=== PATIENT | female | born 1975 | race Caucasian/White ===

== ENCOUNTER → 2018-10-06 | Outpatient (CLI) | payer SELFPAY ==
[~2018-10-06] MED LIST: NITR-65 PO
--- NOTE | 2018-10-06 17:59 | Diagnostic Imaging Report ---
INDICATION: Fall on ice. FINDINGS: No fracture or dislocation. IMPRESSION: No acute-appearing abnormality. Dictated by: Dictated on workstation # [id number]
== END ==
LOC: RAD FS 17:19
PROVIDERS: ATTEND Physician Assistant
DX: S49.91XA Unspecified injury of right shoulder and upper arm, initial encounter (principal); W00.9XXA Unspecified fall due to ice and snow, initial encounter
CPT/HCPCS: 73030

== ENCOUNTER 2019-10-10 21:56 | Emergency (ER) | payer SELFPAY ==
[~2019-10-10] VITALS: Ht 165.1 cm; Wt 115.7 kg
[2019-10-10] MEDS ORDERED: PANTOPRAZOLE 40 MG (PROTONIX) VIAL IV STA (22:17)
[2019-10-10] MEDS ORDERED: NITROGLYCERIN 2% OINT 1 GM UNIT DOSE PACKET TOP STA (22:17)
[2019-10-10] MEDS ORDERED: ASPIRIN 81 MG CHEW (CHILDREN'S ASA) PO ONE (22:30)
[2019-10-10 22:31] LABS: BASOPHILS # (AUTO) 0.1 10^3/uL (0.0-0.1); BASOPHILS % (AUTO) 1 % (0-10); EOSINOPHILS # (AUTO) 0.1 10^3/uL (0.0-0.3); EOSINOPHILS % (AUTO) 1 % (0-10); HEMATOCRIT 44 % (35-52); HEMOGLOBIN 14.1 G/DL (11.5-16.0); LYMPHOCYTES # (AUTO) 2.5 X 10^3 (1.0-4.0); LYMPHOCYTES % (AUTO) 25 % (12-44); MEAN CORPUSCULAR HEMOGLOBIN 27 PG (25-34); MEAN CORPUSCULAR HGB CONC 32 G/DL (32-36); MEAN CORPUSCULAR VOLUME 84 FL (80-99); MEAN PLATELET VOLUME 9.9 FL (7.4-10.4); MONOCYTES # (AUTO) 0.7 X 10^3 (0.0-1.0); MONOCYTES % (AUTO) 7 % (0-12); NEUTROPHILS # (AUTO) 6.5 X 10^3 (1.8-7.8); NEUTROPHILS % (AUTO) 66 % (42-75); PLATELET COUNT 313 10^3/uL (130-400); RED CELL DISTRIBUTION WIDTH 13.8 % (10.0-14.5); WHITE BLOOD COUNT 9.8 10^3/uL (4.3-11.0)
[2019-10-10 22:41] LABS: INR 0.9 (0.8-1.4); PROTHROMBIN TIME PATIENT 12.6 SEC (12.2-14.7)
[2019-10-10 22:43] LABS: BUN/CREATININE RATIO 16; CARBON DIOXIDE 25 MMOL/L (21-32); CHLORIDE 101 MMOL/L (98-107); CREATININE SERUM 0.79 MG/DL (0.60-1.30); GFR ESTIMATED > 60; GLUCOSE 107 MG/DL (70-105); POTASSIUM 4.4 MMOL/L (3.6-5.0); SODIUM 141 MMOL/L (135-145)
[2019-10-10 22:44] LABS: ALANINE AMINOTRANSFERASE 14 U/L (0-55); ALBUMIN 4.6 GM/DL (3.2-4.5); ALKALINE PHOSPHATASE 74 U/L (40-136); BILIRUBIN,TOTAL 0.7 MG/DL (0.1-1.0); CALCIUM 10.3 MG/DL (8.5-10.1); LIPASE 21 U/L (8-78); TOTAL PROTEIN 7.8 GM/DL (6.4-8.2)
--- NOTE | 2019-10-10 22:46 | ED Chest Pain ---
General Chief Complaint: Chest Pain Stated Complaint: CHEST PAINS Nursing Triage Note: PT AMBULATE TO ROOM FS03 WITH C/O CHEST PAIN STARTING AT 1730. PT DENIES HX OF CARDIAC PROBLEMS AND STATES FAMILY HX OF. Nursing Sepsis Screen: No Definite Risk Source: patient History of Present Illness Date Seen by Provider: Oct 10, 2019 Time Seen by Provider: 21:59 Initial Comments 44-year-old female presenting with complaints of left-sided chest pain. She states that the pain started around 5:30. She initially had a sensation of warm water going across her chest. She had a flushed sensation and redness in her face. She had pain in her left chest under her breast going through to her back. This persisted since 5:30. It feels worse when she lays back. She also has recently had increased indigestion. She had tried Tums at home without improvement. She denies any nausea or vomiting. She was having no change in her bowel movements. She has no pain with urination. She has improvement with deep breaths. She does have a family history of heart problems and heart attacks. She has gained weight and is weighing the most she ever has currently. Allergies and Home Medications Allergies Coded Allergies: No Known Drug Allergies (Unverified , 10/10/19) Home Medications Pantoprazole Sodium 40 Mg Tablet.dr, 40 MG PO DAILY Prescribed by: RANDELL PEREZ on 10/11/19 0032 Patient Home Medication List Home Medication List Reviewed: Yes Review of Systems Review of Systems Constitutional: No chills, No diaphoresis, No dizziness, No fever EENTM: No Double Vision, No Eye Pain, No Mouth Pain, No Nose Congestion, No Throat Pain Respiratory: Denies Cough, Denies Shortness of Air, Denies Stridor, Denies Wheezing Cardiovascular: See HPI; Denies Edema Gastrointestinal: Denies Abdominal Pain, Denies Nausea Genitourinary: Denies Flank Pain, Denies Pain Musculoskeletal: no symptoms reported Skin: No rash Psychiatric/Neurological: Denies Headache, Denies Numbness Endocrine: No Symptoms Reported Hematologic/Lymphatic: No Symptoms Reported Past Oemkawh-Wfruog-Zyuczz Hx Past Med/Social Hx: Reviewed Nursing Past Med/Soc Hx Patient Social History Alcohol Use: Denies Use Recreational Drug Use: No Smoking Status: Former Smoker 2nd Hand Smoke Exposure: No Recent Foreign Travel: No Contact w/Someone Who Travel: No Recent Infectious Disease Expo: No Recent Hopitalizations: No Physical Abuse: No Sexual Abuse: No Mistreated: No Fear: No Seasonal Allergies Seasonal Allergies: No Past Medical History Surgeries: No Respiratory: No Cardiac: No Neurological: No Genitourinary: No Gastrointestinal: No Musculoskeletal: No Endocrine: No HEENT: No Cancer: No Psychosocial: No Integumentary: No Blood Disorders: No Physical Exam Vital Signs Vital Signs - First Documented 10/10/19 22:04 Temp 35.8 Pulse 88 Resp 19 B/P (MAP) 162/101 (121) O2 Delivery Room Air Capillary Refill : Less Than 3 Seconds Height, Weight, BMI Height: '" Weight: lbs. oz. kg; 42.00 BMI Method: General Appearance: WD/WN, Mild Distress, Obese HEENT: PERRL/EOMI, Normal ENT Inspection, Pharynx Normal Neck: Full Range of Motion, Normal Inspection, Non Tender, Supple; No Carotid Bruit Respiratory: Chest Non Tender, Lungs Clear, Normal Breath Sounds, No Accessory Muscle Use, No Respiratory Distress Cardiovascular: Regular Rate, Rhythm, Normal Peripheral Pulses Gastrointestinal: Normal Bowel Sounds, No Pulsatile Mass, Non Tender, Soft Extremity: Normal Capillary Refill, Normal Inspection, Normal Range of Motion, Non Tender, No Calf Tenderness, No Pedal Edema Neurologic/Psychiatric: Alert, Oriented x3, No Motor/Sensory Deficits, Normal Mood/Affect, 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 Skin: Normal Color, Warm/Dry Progress/Results/Core Measures Results/Orders Lab Results Laboratory Tests Test 10/10/19 22:05 Range/Units White Blood Count 9.8 4.3-11.0 10^3/uL Red Blood Count 5.18 4.35-5.85 10^6/uL Hemoglobin 14.1 11.5-16.0 G/DL Hematocrit 44 35-52 % Mean Corpuscular Volume 84 80-99 FL Mean Corpuscular Hemoglobin 27 25-34 PG Mean Corpuscular Hemoglobin Concent 32 32-36 G/DL Red Cell Distribution Width 13.8 10.0-14.5 % Platelet Count 313 130-400 10^3/uL Mean Platelet Volume 9.9 7.4-10.4 FL Neutrophils (%) (Auto) 66 42-75 % Lymphocytes (%) (Auto) 25 12-44 % Monocytes (%) (Auto) 7 0-12 % Eosinophils (%) (Auto) 1 0-10 % Basophils (%) (Auto) 1 0-10 % Neutrophils # (Auto) 6.5 1.8-7.8 X 10^3 Lymphocytes # (Auto) 2.5 1.0-4.0 X 10^3 Monocytes # (Auto) 0.7 0.0-1.0 X 10^3 Eosinophils # (Auto) 0.1 0.0-0.3 10^3/uL Basophils # (Auto) 0.1 0.0-0.1 10^3/uL Prothrombin Time 12.6 12.2-14.7 SEC INR Comment 0.9 0.8-1.4 Activated Partial Thromboplast Time 29 24-35 SEC Sodium Level 141 135-145 MMOL/L Potassium Level 4.4 3.6-5.0 MMOL/L Chloride Level 101 98-107 MMOL/L Carbon Dioxide Level 25 21-32 MMOL/L Anion Gap 15 H 5-14 MMOL/L Blood Urea Nitrogen 13 7-18 MG/DL Creatinine 0.79 0.60-1.30 MG/DL Estimat Glomerular Filtration Rate > 60 BUN/Creatinine Ratio 16 Glucose Level 107 H 70-105 MG/DL Calcium Level 10.3 H 8.5-10.1 MG/DL Corrected Calcium 8.5-10.1 MG/DL Magnesium Level 2.0 1.6-2.4 MG/DL Total Bilirubin 0.7 0.1-1.0 MG/DL Aspartate Amino Transf (AST/SGOT) 14 5-34 U/L Alanine Aminotransferase (ALT/SGPT) 14 0-55 U/L Alkaline Phosphatase 74 40-136 U/L Troponin I < 0.30 <0.30 NG/ML Pro-B-Type Natriuretic Peptide 21.0 <75.0 PG/ML Total Protein 7.8 6.4-8.2 GM/DL Albumin 4.6 H 3.2-4.5 GM/DL Lipase 21 8-78 U/L My Orders Orders - RANDELL PEREZ MD Cbc With Automated Diff (10/10/19 22:17) Magnesium (10/10/19 22:17) Chest 1 View Ap/Pa Only (10/10/19 22:17) Ekg Tracing (10/10/19 22:17) Comprehensive Metabolic Panel (10/10/19 22:17) Protime With Inr (10/10/19 22:17) Partial Thromboplastin Time (10/10/19 22:17) O2 (10/10/19 22:17) Monitor-Rhythm Ecg Trace Only (10/10/19 22:17) Aspirin Chewable Tablet (Baby Aspirin Ch (10/10/19 22:30) Ed Iv/Invasive Line Start (10/10/19 22:17) Lipase (10/10/19 22:17) Troponin I Fs (10/10/19 22:17) Probnp Fs (10/10/19 22:17) Nitroglycerin Ointment (Nitrobid Ointme (10/10/19 22:17) Pantoprazole Injection (Protonix Injecti (10/10/19 22:17) Antacid Suspension (Mylanta Suspension (10/10/19 23:45) Medications Given in ED Current Medications Medications Dose Ordered Sig/Asuncion Route Start Time Stop Time Status Last Admin Dose Admin Al Hydrox/Mg Hydrox/Simethicone 30 ml ONCE ONCE PO 10/10/19 23:45 10/10/19 23:46 DC 10/10/19 23:53 30 ML Aspirin 324 mg ONCE ONCE PO 10/10/19 22:30 10/10/19 22:31 DC 10/10/19 22:30 324 MG Vital Signs/I&O 10/10/19 10/10/19 22:04 22:09 Temp 35.8 Pulse 88 Resp 19 B/P (MAP) 162/101 (121) O2 Delivery Room Air Room Air Blood Pressure Mean: 121 Progress Progress Note #1: Progress Note check labs, ECG, CXR. Give Protonix for possible GI source of pain. Try nitroglycerin for elevated blood pressure and pain. Give aspirin for possible cardiac source. The electrocardiogram does not show any acute ST elevation or acute MT. Progress Note #2: Progress Note On recheck her symptoms are improved with treatment. She has improved blood pressure as well. Her chest x-ray, EKG, labs are all within normal limits. She has no elevation of troponin. Her blood pressure continues to fluctuate but is improved with treatment. Will add on a dose of Maalox as patient refused GI cocktail. Her troponin was not elevated at all and she has had pain for over 5 hours on arrival. If this was an MT she should've had at least some sort of elevation of her troponin. Progress Note #3: Progress Note After Mylanta she reports pain maybe slightly improved. She has no pain going to her back. Will discharge her to follow up with Dr. Arita. Counseled that she may need an EGD to look for hiatal hernia or ulcer. She may also need risk stratification testing with cardiology. Reviewed follow-up precautions if her symptoms worsen. Will prescribe Protonix to help with acid and possible hiatal hernia symptoms. Initial ECG Impression Date: Oct 10, 2019 Initial ECG Impression Time: 22:11 Initial ECG Rate: 80 Initial ECG Rhythm: Normal Sinus Initial ECG Comparisson: No Previous ECG Available Comment Sinus rhythm with heart rate of 80 bpm. SD interval 148 ms. QT interval 359 ms and a QTc interval 415 ms. There is no acute ST elevation. There is no prior tracing available for comparison. Diagnostic Imaging Diagonstic Imaging: Xray Plain Films/CT/US/NM/MRI: chest Comments On my review of her 1 view chest x-ray she has no acute infiltrate or effusion. Departure Impression Primary Impression: Left-sided chest pain Additional Impressions: Elevated blood pressure reading Gastritis Qualified Codes: K29.70 - Gastritis, unspecified, without bleeding Disposition: HOME, SELF-CARE Condition: Stable Departure-Patient Inst. Decision time for Depature: 00:31 Referrals: SHAUN ARITA MD (PCP/Family) Primary Care Physician Patient Instructions: Chest Pain That Is Not Caused by the Heart (DC), Gastritis (DC), Hiatal Hernia (DC), High Blood Pressure (DC) Add. Discharge Instructions: Stay well hydrated and get plenty of rest Try following a bland diet Take the medicine for acid Check back with clinic for continued symptoms and further evaluation. Return or seek medical care for worsening symptoms All discharge instructions reviewed with patient and/or family. Voiced under standing. Scripts Pantoprazole Sodium (Pantoprazole Sodium) 40 Mg Tablet. 40 MG PO DAILY for gastritis/hiatal hernia for 30 Days, #30 TAB 0 Refills Prov: RANDELL PEREZ MD 10/11/19 RANDELL PEREZ MD Oct 10, 2019 22:46
[2019-10-10] MEDS ORDERED: ANTACID SUSP 30 ML UDC (MYLANTA) PO ONE (23:45)
[2019-10-11] MEDS ORDERED: PANT40TA3 PO (00:32)
[2019-10-11 00:38] VITALS: BP 146/90
--- NOTE | 2019-10-11 06:11 | Diagnostic Imaging Report ---
INDICATION: Chest pain COMPARISON: None. FINDINGS: Frontal view of the chest demonstrates clear lungs bilaterally. The heart size is normal. There is no pneumothorax. Osseous structures are normal. IMPRESSION: No acute findings. Normal chest. Dictated by: Dictated on workstation # [id number]
== END 2019-10-11 00:38 | disposition home or self-care (01) ==
LOC: MERGE 21:58 → ER FS 21:58
DX: R07.89 Other chest pain (principal); K29.70 Gastritis, unspecified, without bleeding; R03.0 Elevated blood-pressure reading, without diagnosis of hypertension; Z87.891 Personal history of nicotine dependence
CPT/HCPCS: 36415; 71045; 80053; 83690; 83735; 83880; 84484; 85025; 85610; 85730; 93005; 93041

== ENCOUNTER 2021-05-16 12:37 | Emergency (ER) | payer BC, OTHER ==
[~2021-05-16] VITALS: Ht 165.1 cm; Wt 113.4 kg
[~2021-05-16 12:37] MED LIST changes: +PANT40TA52 PO
[2021-05-16 12:40] VITALS: BP 148/90
--- NOTE | 2021-05-16 12:46 | ED General ---
General Chief Complaint: Dizziness/Syncope Stated Complaint: DIZZINESS History of Present Illness Date Seen by Provider: May 16, 2021 Time Seen by Provider: 12:43 Initial Comments 46-year-old female presents via EMS with complaint of sore throat, headache (onset today) and concern that she may have Covid. She was exposed last week by her mother. Denies shortness of air, denies cough. No significant PMHX. on no Rx medication Allergies and Home Medications Allergies Coded Allergies: Amoxicillin (Verified Allergy, Severe, HIVES, 09/29/12) Patient Home Medication List Home Medication List Reviewed: Yes Nitrofurantoin/Nitrofuran Mac (Macrobid) 100 Mg Capsule, 1 EACH PO BID Prescribed by: LIDIA LEON on 09/29/121912 Pantoprazole Sodium (Pantoprazole Sodium) 40 Mg Tablet.dr, 40 MG PO DAILY Prescribed by: RANDELL PEREZ on 10/11/19 003 Review of Systems Review of Systems Constitutional: No chills, No fever; malaise EENTM: nose congestion, throat pain; No ear discharge, No ear pain, No nose pain Respiratory: No cough, No short of breath Cardiovascular: No edema, No palpitations Gastrointestinal: No abdominal pain, No loss of appetite, No nausea, No vomiting Musculoskeletal: No back pain, No joint pain Skin: No change in color, No rash Psychiatric/Neurological: Headache; Denies Weakness Past Mduvweg-Ekjthz-Svayqg Hx Patient Social History Tobacco Use?: No Past Medical History Reproductive Disorders: No Sexually Transmitted Disease: No HIV/AIDS: No Adverse Reaction/Blood Tranf: No Physical Exam Vital Signs Vital Signs - First Documented 05/16/21 12:40 Temp 36.8 Pulse 73 Resp 17 B/P (MAP) 148/90 (109) O2 Delivery Room Air Capillary Refill : Height, Weight, BMI Height: '" Weight: lbs. oz. kg; BMI Method:Stated General Appearance: No Apparent Distress HEENT: PERRL/EOMI, TMs Normal, Normal ENT Inspection, Pharynx Normal Neck: Non Tender, Supple Respiratory: Chest Non Tender, Lungs Clear Cardiovascular: Regular Rate, Rhythm, No Edema Neurologic/Psychiatric: Alert, Oriented x3, No Motor/Sensory Deficits, Normal Mood/Affect Progress/Results/Core Measures Suspected Sepsis SIRS Temperature: Pulse: Respiratory Rate: Blood Pressure / Mean: Results/Orders My Orders Orders - NORM JARVIS DO Coronavirus Sars-Cov-2 So 2018 (05/16/21 12:46) Vital Signs/I&O 05/16/21 12:40 Temp 36.8 Pulse 73 Resp 17 B/P (MAP) 148/90 (109) O2 Delivery Room Air Capillary Refill : Departure Impression Primary Impression: Viral upper respiratory illness Disposition: HOME, SELF-CARE Condition: Stable Departure-Patient Inst. Decision time for Depature: 12:45 Referrals: SHAUN ARITA MD (PCP/Family) Primary Care Physician Add. Discharge Instructions: Call Dr Arita with any further questions related to your current illness. Return to the ER if significantly worse. Take the following vitamins daily - C 1000mg twice daily; D 5000iu daily and Zinc 100mg daily All discharge instructions reviewed with patient and/or family. Voiced understanding. NORM JARVIS DO May 16, 2021 12:46
[2021-05-16] MEDS ORDERED: KETOROLAC 60 MG/2 ML VIAL IM ONE (13:00)
== END 2021-05-16 13:08 | disposition home or self-care (01) ==
LOC: EDUNIT# 12:37 → ER FS 12:38
DX: J06.9 Acute upper respiratory infection, unspecified (principal); Z20.822 Contact with and (suspected) exposure to COVID-19
CPT/HCPCS: 87635; 99283

== ENCOUNTER 2021-06-03 17:48 | Emergency (ER) | payer BC ==
[~2021-06-03] VITALS: Ht 165 cm; Wt 104.3 kg
[2021-06-03] MEDS ORDERED: ADENOSINE 6 MG/2 ML (ADENOCARD) VIAL IV ONE ×3 (17:57→18:30)
[2021-06-03] MEDS ORDERED: MIDAZOLAM 2 MG/2 ML (VERSED) VIAL ONE (17:59)
[2021-06-03] MEDS ORDERED: NS IV 1000 ML 1,000 ML ONE (17:59)
--- NOTE | 2021-06-03 18:16 | ED Chest Pain ---
General Chief Complaint: Respiratory Problems Stated Complaint: SOB,DIZZY,HEART RACING,CHEST TIGHTNESS Source: patient Exam Limitations: no limitations History of Present Illness Date Seen by Provider: Jun 03, 2021 Time Seen by Provider: 17:51 Initial Comments 46-year-old female otherwise healthy with no significant past medical history coming in after she felt like her heart was racing and she was having chest discomfort. The racing was severe, constant, nothing seemed to make it better or worse. She has never had anything like this happen before. 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 Denies any fever, nausea, vomiting, diarrhea, weakness, numbness, or any other concerns. She does drink caffeine multiple times per day in the form of coffee. Denies any other stimulants. Does not drink alcohol. No history of thyroid disorder Allergies and Home Medications Allergies Coded Allergies: Amoxicillin (Verified Allergy, Severe, HIVES, 09/29/12) Patient Home Medication List Home Medication List Reviewed: Yes Nitrofurantoin/Nitrofuran Mac (Macrobid) 100 Mg Capsule, 1 EACH PO BID Prescribed by: LIDIA LEON on 09/29/121912 Pantoprazole Sodium (Pantoprazole Sodium) 40 Mg Tablet.dr, 40 MG PO DAILY Prescribed by: RANDELL PEREZ on 10/11/19 003 Review of Systems Review of Systems Constitutional: No chills, No fever EENTM: No Blurred Vision Respiratory: Denies Cough; Shortness of Air Cardiovascular: Chest Pain Gastrointestinal: Denies Abdominal Pain, Denies Constipated, Denies Diarrhea, Denies Nausea, Denies Vomiting Genitourinary: No Symptoms Reported Musculoskeletal: no symptoms reported Skin: no symptoms reported Psychiatric/Neurological: No Symptoms Reported Endocrine: No Symptoms Reported Hematologic/Lymphatic: No Symptoms Reported All Other Systems Reviewed Negative Unless Noted: Yes Past Oifiwds-Oifbip-Lbsapn Hx Patient Social History Tobacco Use?: No Substance use?: No Alcohol Use?: No Past Medical History Surgeries: No Reproductive Disorders: No Sexually Transmitted Disease: No HIV/AIDS: No Adverse Reaction/Blood Tranf: No Physical Exam Vital Signs Vital Signs - First Documented 06/03/21 17:55 Temp 36.7 Pulse 220 Resp 20 B/P (MAP) 168/85 (112) Pulse Ox 94 O2 Delivery Room Air Capillary Refill : Height, Weight, BMI Height: '" Weight: lbs. oz. kg; 41.00 BMI Method:Stated General Appearance: WD/WN, Anxious, Mild Distress HEENT: PERRL/EOMI, Normal ENT Inspection, Pharynx Normal Neck: Full Range of Motion, Normal Inspection, Non Tender, Supple Respiratory: Chest Non Tender, Lungs Clear, Normal Breath Sounds, No Accessory Muscle Use, No Respiratory Distress Cardiovascular: No Edema, No Murmur, Normal Peripheral Pulses, Tachycardia Gastrointestinal: Normal Bowel Sounds, Non Tender, Soft; No Distended, No Guarding Extremity: Normal Capillary Refill, Normal Inspection, Normal Range of Motion, Non Tender, No Calf Tenderness, No Pedal Edema Neurologic/Psychiatric: Alert, No Motor/Sensory Deficits, Normal Mood/Affect Skin: Normal Color, Warm/Dry Lymphatic: No Adenopathy Progress/Results/Core Measures Results/Orders My Orders Orders - SIMRAN LAMB MD Adenosine Injection (Adenocard Injection (06/03/21 17:57) Midazolam Injection (Versed Injection) (06/03/21 17:59) Ns Iv 1000 Ml (Sodium Chloride 0.9%) (06/03/21 17:59) Ekg Tracing (06/03/21 18:07) Diltiazem Injection (Cardizem Injection) (06/03/21 18:07) Ekg Tracing (06/03/21 18:10) Midazolam Injection (Versed Injection) (06/03/21 18:19) Adenosine Injection (Adenocard Injection (06/03/21 18:30) Adenosine Injection (Adenocard Injection (06/03/21 18:30) Medications Given in ED Current Medications Medications Dose Ordered Sig/Asuncion Route Start Time Stop Time Status Last Admin Dose Admin Adenosine 6 mg ONCE ONCE IV 06/03/21 18:30 06/03/21 18:31 DC 06/03/21 18:04 6 MG Adenosine 12 mg ONCE ONCE IV 06/03/21 18:30 06/03/21 18:31 DC 06/03/21 18:07 12 MG Vital Signs/I&O 06/03/21 06/03/21 17:55 19:00 Temp 36.7 Pulse 220 100 Resp 20 19 B/P (MAP) 168/85 (112) 162/91 Pulse Ox 94 95 O2 Delivery Room Air Room Air Progress Progress Note : Progress Note 46-year-old female with above history coming in because she feels like her heart is racing and she has some chest discomfort that started at the same time. Heart rate was 230 roughly on arrival and regular with a narrow complex consistent with supraventricular tachycardia. This is never happened before. Blood pressure was actually hypertensive and she was stable with a normal mental status. Tried modified Valsalva x2 which was ineffective. IV was placed and she was given half milligram of Versed followed by 6 mg of adenosine which was not effective. She then converted with 12 mg of adenosine to sinus rhythm. Liter bolus of IV fluids followed by 10 mg of IV diltiazem given. Given this is never happened before, I will just recommend following up with her primary care doctor. I discussed that she can try Valsalva twice at home the next time this occurs and if she still feels that is happening she needs to call an ambulance or come immediately to the ER. Will defer cardiology referral given this is her first time this is occurred. She was monitored in the ED for some time and when she continued to be in sinus rhythm she was discharged home in stable condition with strict return precautions. Initial ECG Impression Date: Jun 03, 2021 Initial ECG Impression Time: 17:49 Initial ECG Rate: 230 Initial ECG Rhythm: SVT Comment Narrow QRS, normal axis, ST depressions globally likely rate related EKG : EKG Time: 17:59 Rate: 115 Rhythm: S.Tach Comment Narrow QRS, normal axis, no significant ST changes or T wave abnormalities Departure Impression Primary Impression: SVT (supraventricular tachycardia) Disposition: 01 HOME, SELF-CARE Condition: Stable Departure-Patient Inst. Decision time for Depature: 19:16 Referrals: SELF,SHAUN MAGALLON (PCP/Family) Primary Care Physician Patient Instructions: Supraventricular Tachycardia (SVT) Add. Discharge Instructions: You are seen in the emergency department for your chest discomfort and your heart racing. On the monitor you had what was called supraventricular tachycardia or SVT for short period. This is fairly common and a lot of people this never occurs again. If you feel like this is happening again at home you can try Valsalva maneuvers like we attempted with you. If you try this twice and does not getting better than either call 911 or have someone immediately drive you to the ER. If this becomes a recurrent thing where you have had to go to the ER 3 or more times then I would recommend following up with a television newscast director as there is a procedure they can do to prevent it from happening again. I do recommend you follow-up with your primary care provider this week to discuss any options. Sometimes they want to start you on medications. The best way to avoid this is to drink plenty of fluids and to avoid stimulants such as caffeine. SIMRAN LAMB MD Jun 03, 2021 18:16
[2021-06-03] MEDS ORDERED: MIDAZOLAM 10 MG/2 ML (VERSED) VIAL IVP STA (18:19)
[2021-06-03 19:24] VITALS: BP 171/72
== END 2021-06-03 19:24 | disposition home or self-care (01) ==
LOC: EDUNIT# 17:48 → ER FS 17:50
DX: I47.1 Supraventricular tachycardia (principal)
CPT/HCPCS: 93005

== ENCOUNTER 2021-08-07 12:19 | Emergency (ER) | payer BC ==
[~2021-08-07] VITALS: Ht 165.1 cm; Wt 119.7 kg
[2021-08-07] MEDS ORDERED: diphenhydrAMINE 50 MG/ML INJ (BENADRYL) IM ONE (12:30)
[2021-08-07] MEDS ORDERED: FAMOTIDINE 20 MG (PEPCID) TABLET PO ONE (12:30)
--- NOTE | 2021-08-07 12:35 | ED General ---
General Chief Complaint: Allergic Reaction Stated Complaint: ALLERGIC REACTION - SWOLLEN LIPS Source of Information: Patient Exam Limitations: No Limitations History of Present Illness Date Seen by Provider: Aug 07, 2021 Time Seen by Provider: 12:21 Initial Comments 46-year-old female otherwise healthy coming in due to concerns for an allergic reaction. She does have a known amoxicillin allergy in which she had a rash. Diagnosed with strep throat yesterday and started on cefdinir which she has never taken before. Took 1 dose last night and did fine. Took another dose at this morning around 8 AM. Was at lunch around 11 AM this morning when she noticed her lips seem like they are getting larger and felt like they were tingling. Denies any wheezing, vomiting, abdominal pain, rash, chest pain, or any other concerns. Has not had any other medications except for ibuprofen today. She was eating lunch at [facility] and had chicken, cheese, and rice. She says she gets this all the time and never has issue with that. She is not on an LIZZIE/ARB medication and has no history of angioedema. Allergies and Home Medications Allergies Coded Allergies: amoxicillin (Verified Allergy, Severe, HIVES, 09/29/12) cefdinir (Verified Allergy, Unknown, 08/07/21) Patient Home Medication List Home Medication List Reviewed: Yes Nitrofurantoin/Nitrofuran Mac (Macrobid) 100 Mg Capsule, 1 EACH PO BID Prescribed by: LIDIA LEON on 09/29/121912 Pantoprazole Sodium (Pantoprazole Sodium) 40 Mg Tablet.dr, 40 MG PO DAILY Prescribed by: RANDELL PEREZ on 10/11/19 0032 Review of Systems Review of Systems Constitutional: No chills, No fever EENTM: No blurred vision Respiratory: No cough, No short of breath Cardiovascular: No chest pain Gastrointestinal: No abdominal pain, No diarrhea, No nausea, No vomiting Genitourinary: no symptoms reported Musculoskeletal: no symptoms reported Skin: no symptoms reported Psychiatric/Neurological: No Symptoms Reported Hematologic/Lymphatic: No Symptoms Reported Immunological/Allergic: no symptoms reported All Other Systems Reviewed Negative Unless Noted: Yes Past Vrdaxgo-Emmcjl-Lqulrm Hx Patient Social History Tobacco Use?: Yes Substance use?: No Alcohol Use?: No Past Medical History Surgeries: No Reproductive Disorders: No Sexually Transmitted Disease: No HIV/AIDS: No Adverse Reaction/Blood Tranf: No Physical Exam Vital Signs Vital Signs - First Documented 08/07/21 12:29 Temp 36.4 Pulse 95 Resp 16 B/P (MAP) 187/106 (133) Pulse Ox 97 O2 Delivery Room Air Capillary Refill : Height, Weight, BMI Height: '" Weight: lbs. oz. kg; 38.00 BMI Method:Stated General Appearance: No Apparent Distress, WD/WN Eyes: Bilateral Eye Normal Inspection, Bilateral Eye PERRL, Bilateral Eye EOMI HEENT: PERRL/EOMI, Normal ENT Inspection, Pharynx Normal, Other (slightly enlarged lips, no tongue enlargement, normal voice) Neck: Full Range of Motion, Normal Inspection, Non Tender, Supple Respiratory: Chest Non Tender, Lungs Clear, Normal Breath Sounds, No Accessory Muscle Use, No Respiratory Distress Cardiovascular: Regular Rate, Rhythm, No Edema, Normal Peripheral Pulses Gastrointestinal: Normal Bowel Sounds, Non Tender, Soft; No Distended, No Guarding Back: Normal Inspection, No CVA Tenderness, No Vertebral Tenderness Extremity: Normal Capillary Refill, Normal Inspection, Normal Range of Motion, Non Tender, No Calf Tenderness, No Pedal Edema Neurologic/Psychiatric: Alert, No Motor/Sensory Deficits, Normal Mood/Affect Skin: Normal Color, Warm/Dry Lymphatic: No Adenopathy Progress/Results/Core Measures Suspected Sepsis SIRS Temperature: Pulse: Respiratory Rate: Blood Pressure / Mean: Results/Orders My Orders Orders - SIMRAN LAMB MD Diphenhydramine Injection (Benadryl Inje (08/07/21 12:30) Dexamethasone Injection (Decadron Injec (08/07/21 12:27) Famotidine Tablet (Pepcid Tablet) (08/07/21 12:30) Medications Given in ED Current Medications Medications Dose Ordered Sig/Asuncion Route Start Time Stop Time Status Last Admin Dose Admin Diphenhydramine HCl 25 mg ONCE ONCE IM 08/07/21 12:30 08/07/21 12:31 DC 08/07/21 12:44 25 MG Famotidine 40 mg ONCE ONCE PO 08/07/21 12:30 08/07/21 12:31 DC 08/07/21 12:44 40 MG Vital Signs/I&O 08/07/21 12:29 Temp 36.4 Pulse 95 Resp 16 B/P (MAP) 187/106 (133) Pulse Ox 97 O2 Delivery Room Air Capillary Refill : Progress Note : Progress Note 46-year-old female with above history coming in due to concerns for allergic reaction. ABCs were intact and vitals were stable on presentation. Physical exam with mildly enlarged lips, to be bhupinder I do not know if I would have recognized that objectively, but the patient is stating they were larger than usual. Has no other signs that would be concerning for anaphylaxis. Does have an obvious offending agent given she just started cefdinir and has a known amoxi cillin allergy. We will place cephalosporins on her allergy list. We will treat this as an allergic reaction with IM Benadryl, steroids, and p.o. Pepcid. We will monitor her for a couple of hours with frequent reassessments to be sure she is not progressing to worsening symptoms. Does not appear like angioedema at this time and does not take any offending agents. On reassessment, her symptoms were improving. I believe she is stable for discharge with outpatient follow-up. Sent prescription for clindamycin to finish for her previously diagnosed strep infection. Also sent her an EpiPen. She was then discharged home in stable condition with strict return precautions Departure Impression Primary Impression: Allergic reaction Qualified Codes: T78.40XA - Allergy, unspecified, initial encounter Disposition: HOME, SELF-CARE Condition: Stable Departure-Patient Inst. Decision time for Depature: 14:00 Referrals: SHAUN NAVA MD (PCP/Family) Primary Care Physician Patient Instructions: Allergic Reaction ED Add. Discharge Instructions: If you start wheezing, feel short of breath, or feel like things are worsening then please come back to the emergency department. The EpiPen as if you are having anaphylaxis. The most often recognize symptoms of anaphylaxis is feel like your throat is tightening with wheezing and feeling short of breath. Scripts Clindamycin HCl (Clindamycin HCl) 300 Mg Capsule 300 MG PO QID for 7 Days, #28 CAP Prov: SIMRAN LAMB MD 08/07/21 Epinephrine (Epipen 2-Vladimir) 0.3 Mg/0.3 Ml Auto.injct 0.3 MG IJ Q15M PRN for anaphylaxis, #1 EACH Prov: SIMRAN LAMB MD 08/07/21 Work/School Note: Work Release Form Date Seen in the Emergency Department: Aug 07, 2021 Return to Work: Aug 09, 2021 SIMRAN LAMB MD Aug 07, 2021 12:35
[2021-08-07] MEDS ORDERED: CLIN-144 PO (13:51)
[2021-08-07] MEDS ORDERED: EPIN0.3P3 IJ (13:51)
[2021-08-07 13:53] VITALS: BP 142/93
== END 2021-08-07 13:59 | disposition home or self-care (01) ==
LOC: EDUNIT# 12:19 → ER FS 12:20
DX: K13.0 Diseases of lips (principal); T78.40XA Allergy, unspecified, initial encounter
CPT/HCPCS: 99284

== ENCOUNTER 2022-04-22 07:16 | Emergency (ER) | payer BC, OTHER ==
[~2022-04-22] VITALS: Ht 165 cm; Wt 112.0 kg
[~2022-04-22 07:16] MED LIST changes: +CLIN-144 PO; +EPIN0.3P3 IJ
[2022-04-22] MEDS ORDERED: NS IV 1000 ML 1,000 ML IV STA (07:19)
[2022-04-22] MEDS ORDERED: dilTIAZem DRIP PRE-MIX 125 ML IV STA (07:31)
[2022-04-22] MEDS ORDERED: dilTIAZem DRIP PRE-MIX 125 ML IV ONE (07:32)
--- NOTE | 2022-04-22 07:35 | ED Cardiac General ---
History of Present Illness General Stated Complaint: CHEST PAIN Source: patient, EMS Exam Limitations: no limitations History of Present Illness Date Seen by Provider: Apr 22, 2022 Time Seen by Provider: 07:15 Initial Comments 47-year-old female with past medical history of paroxysmal SVT coming in via EMS from home due to palpitations. They started around 630 this morning, felt like her heart was racing and she started to feel lightheaded. On EMS arrival she was initially with a blood pressure of 70s systolic. They are prepping to cardiovert when her blood pressure went up to the 140s systolic. They then gave in succession 6 mg and 12 mg of adenosine. The 12 mg converted her for a second before she went back into SVT with a rate in the 220s. Blood pressure remained slightly elevated. The last time this occurred was last May in this em ergency department. She has since then followed up with her primary physician and a micro computer specialist. Given it was her first time previously, they did not place her on any medicines. Denies any chest pain, shortness of breath, abdominal pain, nausea, vomiting, diarrhea, fever, chills, focal weakness or numbness, or any other concerns. Has been eating and drinking normally, but has had a very stressful week at work. Does continue to drink caffeine, about 2 cups of half caffeinated coffee and half decaffeinated coffee. She was drinking at this morning when this occurred. Does not take in any alcohol. Allergies and Home Medications Allergies Coded Allergies: amoxicillin (Verified Allergy, Severe, HIVES, 09/29/12) cefdinir (Verified Allergy, Unknown, 08/07/21) Patient Home Medication List Home Medication List Reviewed: Yes Clindamycin HCl (Clindamycin HCl) 300 Mg Capsule, 300 MG PO QID Prescribed by: SIMRAN LAMB on 08/07/21 1351 Epinephrine (Epipen 2-Vladimir) 0.3 Mg/0.3 Ml Auto.injct, 0.3 MG IJ Q15M PRN for anaphylaxis Prescribed by: SIMRAN LAMB on 08/07/21 1351 Nitrofurantoin/Nitrofuran Mac (Macrobid) 100 Mg Capsule, 1 EACH PO BID Prescribed by: LIDIA LEON on 09/29/121912 Pantoprazole Sodium (Pantoprazole Sodium) 40 Mg Tablet.dr, 40 MG PO DAILY Prescribed by: RANDELL PEREZ on 10/11/19 0032 Review of Systems Review of Systems Constitutional: No fever EENTM: No Blurred Vision Respiratory: Denies Cough Cardiovascular: Palpitations Gastrointestinal: No Symptoms Reported Genitourinary: No Symptoms Reported Musculoskeletal: no symptoms reported Skin: no symptoms reported Psychiatric/Neurological: No Symptoms Reported Endocrine: No Symptoms Reported Hematologic/Lymphatic: No Symptoms Reported All Other Systems Reviewed Negative Unless Noted: Yes Past Stbtavg-Nxkmdu-Ubmsvg Hx Patient Social History Tobacco Use?: Yes Tobacco type used: Cigarettes Substance use?: No Alcohol Use?: No Immunizations Up To Date First/Initial COVID19 Vaccinat: Not currently vaccinated Past Medical History Surgery/Hospitalization HX: SVT Surgeries: No Reproductive Disorders: No Sexually Transmitted Disease: No HIV/AIDS: No Adverse Reaction/Blood Tranf: No Physical Exam Vital Signs Vital Signs - First Documented 04/22/22 07:26 Pulse 218 B/P (MAP) 148/122 Capillary Refill : Height, Weight, BMI Height: '" Weight: lbs. oz. kg; 43.00 BMI Method:Stated General Appearance: No Apparent Distress, WD/WN HEENT: PERRL/EOMI, Normal ENT Inspection, Pharynx Normal Neck: Full Range of Motion, Normal Inspection, Non Tender, Supple Respiratory: Chest Non Tender, Lungs Clear, Normal Breath Sounds, No Accessory Muscle Use, No Respiratory Distress Cardiovascular: No Edema, Normal Peripheral Pulses, Tachycardia Gastrointestinal: Normal Bowel Sounds, Non Tender, Soft; No Guarding Extremity: Normal Capillary Refill, Normal Inspection, Normal Range of Motion, Non Tender, No Calf Tenderness, No Pedal Edema Neurologic/Psychiatric: Alert, No Motor/Sensory Deficits, Normal Mood/Affect Skin: Normal Color, Warm/Dry Lymphatic: No Adenopathy Progress/Results/Core Measures Results/Orders Lab Results Laboratory Tests Test 04/22/22 07:32 Range/Units White Blood Count 11.4 H 4.3-11.0 10^3/uL Red Blood Count 5.40 H 3.80-5.11 10^6/uL Hemoglobin 15.3 11.5-16.0 g/dL Hematocrit 46 35-52 % Mean Corpuscular Volume 86 80-99 fL Mean Corpuscular Hemoglobin 28 25-34 pg Mean Corpuscular Hemoglobin Concent 33 32-36 g/dL Red Cell Distribution Width 14.4 10.0-14.5 % Platelet Count 386 130-400 10^3/uL Mean Platelet Volume 9.9 9.0-12.2 fL Immature Granulocyte % (Auto) 0 % Neutrophils (%) (Auto) 62 42-75 % Lymphocytes (%) (Auto) 30 12-44 % Monocytes (%) (Auto) 5 0-12 % Eosinophils (%) (Auto) 2 0-10 % Basophils (%) (Auto) 1 0-10 % Neutrophils # (Auto) 7.1 1.8-7.8 10^3/uL Lymphocytes # (Auto) 3.4 1.0-4.0 10^3/uL Monocytes # (Auto) 0.6 0.0-1.0 10^3/uL Eosinophils # (Auto) 0.2 0.0-0.3 10^3/uL Basophils # (Auto) 0.1 0.0-0.1 10^3/uL Immature Granulocyte # (Auto) 0.0 0.0-0.1 10^3/uL My Orders Orders - SIMRAN LAMB MD Diltiazem Injection (Cardizem Injection) (04/22/22 07:30) Ns Iv 1000 Ml (Sodium Chloride 0.9%) (04/22/22 07:19) Basic Metabolic Panel (04/22/22 07:19) Cbc With Automated Diff (04/22/22 07:19) Magnesium (04/22/22 07:19) Thyroid Stimulating Hormone (04/22/22 07:19) Ekg Tracing (04/22/22 07:22) Ekg Tracing (04/22/22 07:45) Diltiazem Drip Pre-Mix (Cardizem Drip Pr (04/22/22 07:31) Diltiazem Drip Pre-Mix (Cardizem Drip Pr (04/22/22 07:32) Medications Given in ED Current Medications Medications Dose Ordered Sig/Asuncion Route Start Time Stop Time Status Last Admin Dose Admin Diltiazem HCl 20 mg ONCE ONCE IVP 04/22/22 07:30 04/22/22 07:31 DC 04/22/22 07:26 20 MG Vital Signs/I&O 04/22/22 07:26 Pulse 218 B/P (MAP) 148/122 Blood Pressure Mean: 131 Progress Progress Note : Progress Note 47-year-old female with above history coming in in SVT. On arrival here her heart rate was around 215 and SVT with a blood pressure around 140. The patient had already received 2 doses of adenosine. An IV was already in place so she was given a bolus of IV fluids followed by a bolus of diltiazem. After the bolus of diltiazem she is started on a drip at 20 mg/h. She converted after roughly 5 minutes back to sinus rhythm. Continue to monitor her for some time to be sure she would maintain in sinus. Basic labs including electrolytes obtained. Not having any chest pain or shortness of breath that would be co ncerning for any type of anginal equivalent. We will have her follow-up with her PCP and cardiology to determine if they would like to keep her on any medicines versus referral for ablation. Initial ECG Impression Date: Apr 22, 2022 Initial ECG Impression Time: 07:22 Initial ECG Rate: 214 Initial ECG Rhythm: SVT Comment Narrow QRS, normal axis, some ST depression and T wave inversions which likely i s due to the elevated heart rate EKG : EKG Time: 07:45 Rate: 101 Rhythm: S.Tach Intervals Narrow QRS, normal axis, no ST elevation Critical Care Note Critical Care Start Time: 07:15 Stop Time: 07:50 Total Time (minutes) 35 Progress Patient was at significant risk for cardiovascular collapse given her documented hypotension with her significantly elevated heart rate and her requiring frequent monitoring and reassessment. She was on a diltiazem drip after a bolus as well. Departure Impression Primary Impression: SVT (supraventricular tachycardia) Disposition: 01 HOME, SELF-CARE Condition: Improved Departure-Patient Inst. Decision time for Depature: 08:15 Referrals: SELF,SHAUN MAGALLON (PCP) Primary Care Physician Patient Instructions: Supraventricular Tachycardia (SVT) Add. Discharge Instructions: Since this is the second time you have had to come to the ER for this, we will start you on a medicine to hopefully help prevent this from happening called metoprolol. You will take this twice a day. Follow-up with your regular doctor to see if they want you to continue on this. If this continues to happen, you m ay eventually need what is called an ablation where you go to a special micro computer specialist that can do a procedure where they prevent this from happening in the future. Scripts Metoprolol Tartrate (Metoprolol Tartrate) 25 Mg Tablet 25 MG PO BID for 30 Days, #60 TAB Prov: SIMRAN LAMB MD 04/22/22 Work/School Note: Work Release Form Date Seen in the Emergency Department: Apr 22, 2022 Return to Work: Apr 23, 2022 Restrictions: No Restrictions SIMRAN LAMB MD Apr 22, 2022 07:35
[2022-04-22 07:37] LABS: BASOPHILS # (AUTO) 0.1 10^3/uL (0.0-0.1); BASOPHILS % (AUTO) 1 % (0-10); EOSINOPHILS # (AUTO) 0.2 10^3/uL (0.0-0.3); EOSINOPHILS % (AUTO) 2 % (0-10); HEMATOCRIT 46 % (35-52); HEMOGLOBIN 15.3 g/dL (11.5-16.0); LYMPHOCYTES # (AUTO) 3.4 10^3/uL (1.0-4.0); LYMPHOCYTES % (AUTO) 30 % (12-44); MEAN CORPUSCULAR HEMOGLOBIN 28 pg (25-34); MEAN CORPUSCULAR HGB CONC 33 g/dL (32-36); MEAN CORPUSCULAR VOLUME 86 fL (80-99); MEAN PLATELET VOLUME 9.9 fL (9.0-12.2); MONOCYTES # (AUTO) 0.6 10^3/uL (0.0-1.0); MONOCYTES % (AUTO) 5 % (0-12); NEUTROPHILS # (AUTO) 7.1 10^3/uL (1.8-7.8); NEUTROPHILS % (AUTO) 62 % (42-75); PLATELET COUNT 386 10^3/uL (130-400); WHITE BLOOD COUNT 11.4 10^3/uL (4.3-11.0)
[2022-04-22 07:47] VITALS: BP 148/122
[2022-04-22] MEDS ORDERED: METO-333 PO (07:50)
[2022-04-22 07:55] LABS: CREATININE SERUM 0.71 MG/DL (0.60-1.30); POTASSIUM 3.9 MMOL/L (3.6-5.0)
[2022-04-22 07:56] LABS: CALCIUM 9.2 MG/DL (8.5-10.1); MAGNESIUM 1.9 MG/DL (1.6-2.4)
== END 2022-04-22 08:14 | disposition home or self-care (01) ==
LOC: EDUNIT# 07:16 → ER FS 07:17
DX: I47.1 Supraventricular tachycardia (principal); F17.210 Nicotine dependence, cigarettes, uncomplicated; Z28.310 Unvaccinated for COVID-19
CPT/HCPCS: 36415; 80048; 83735; 84443; 85025; 93005

== ENCOUNTER 2022-07-02 20:32 | Emergency (ER) | payer BC ==
[~2022-07-02] VITALS: Ht 165.1 cm; Wt 119.3 kg
[~2022-07-02 20:32] MED LIST changes: +METO-333 PO
[2022-07-02] MEDS ORDERED: CLIN-144 PO (20:54)
--- NOTE | 2022-07-02 20:54 | ED EENT ---
History of Present Illness General Chief Complaint: Dental Problems/Pain Stated Complaint: TOOTH PAIN/FACIAL SWELLING Nursing Triage Note: PT ARRIVED BY PRIVATE VEHICLE WITH CHIEF COMPLAINT OF DENTAL PAIN AND FACIAL SWELLING. PT WAS ALERT, ORIENTED X4 AND AMBULATORY. PT STATED THE PAIN IS LOCALIZED ON RIGHT UPPER WHERE HER TOOTH BROKE OFF YESTERDAY. PT STATED SHE WAS DOING FINE UNTIL THE PAST FEW HOURS SHE HAS HAD FACIAL SWELLING. PT HAS TRIED SALT WATER GARGLES AND IBUPROFEN, BUT HER PAIN IS 10+. PT HAS ALLERGIES TO PCN. VITALS WERE TAKEN AND REPORT WAS GIVEN TO PROVIDER. Source: patient Exam Limitations: no limitations History of Present Illness Date Seen by Provider: Jul 02, 2022 Time Seen by Provider: 20:40 Initial Comments 47-year-old female presenting for right upper mouth pain with swelling. Fractured a tooth yesterday, started swelling today with increasing severe pain that is throbbing. Pain is worse with chewing, better with ibuprofen. Denies any fever, difficulty opening her mouth, difficulty swallowing, voice changes, or any other concerns. Does not have a dentist at this time. Allergies and Home Medications Allergies Coded Allergies: amoxicillin (Verified Allergy, Severe, HIVES, 09/29/12) cefdinir (Verified Allergy, Unknown, 08/07/21) Patient Home Medication List Home Medication List Reviewed: Yes Clindamycin HCl (Clindamycin HCl) 300 Mg Capsule, 300 MG PO QID Prescribed by: SIMRAN LAMB on 08/07/21 1351 Epinephrine (Epipen 2-Vladimir) 0.3 Mg/0.3 Ml Auto.injct, 0.3 MG IJ Q15M PRN for anaphylaxis Prescribed by: SIMRAN LAMB on 08/07/21 1351 Metoprolol Tartrate (Metoprolol Tartrate) 25 Mg Tablet, 25 MG PO BID Prescribed by: SIMRAN LAMB on 04/22/22 0750 Nitrofurantoin/Nitrofuran Mac (Macrobid) 100 Mg Capsule, 1 EACH PO BID Prescribed by: LIDIA LEON on 09/29/12 191 Pantoprazole Sodium (Pantoprazole Sodium) 40 Mg Tablet.dr, 40 MG PO DAILY Prescribed by: RANDELL PEREZ on 10/11/19 0032 Review of Systems Review of Systems Constitutional: No fever Eyes: No Symptoms Reported Ears: No Symptoms Reported Nose: no symptoms reported Mouth: see HPI Throat: no symptoms reported Respiratory: no symptoms reported Cardiovascular: no symptoms reported Gastrointestinal: no symptoms reported Musculoskeletal: no symptoms reported Skin: no symptoms reported Neurological: No Symptoms Reported Hematologic/Lymphatic: No Symptoms Reported Immunological/Allergic: no symptoms reported All Other Systems Reviewed Negative Unless Noted: Yes Past Avubtdw-Lxnppo-Djzsnj Hx Patient Social History Tobacco Use?: Yes Tobacco type used: Cigarettes Smoking Status: Current Everyday Smoker Substance use?: No Alcohol Use?: No Pt feels they are or have been: No Immunizations Up To Date First/Initial COVID19 Vaccinat: Not currently vaccinated Second COVID19 Vaccination Kamar: Not currently vaccinated Third COVID19 Vaccination Date: Not currently vaccinated Past Medical History Surgery/Hospitalization HX: SVT Surgeries: No Reproductive Disorders: No Sexually Transmitted Disease: No HIV/AIDS: No Adverse Reaction/Blood Tranf: No Physical Exam Vital Signs Vital Signs - First Documented 07/02/22 20:35 Temp 36.5 Pulse 86 Resp 18 B/P (MAP) 188/107 (134) Pulse Ox 97 O2 Delivery Room Air Height, Weight, BMI Height: '" Weight: lbs. oz. kg; 43.00 BMI Method:Stated General Appearance: WD/WN, no apparent distress Eyes: bilateral eye normal inspection Ears: bilateral ear auricle normal Nose: normal inspection Mouth/Throat: dental tenderness; No excessive drooling, No foreign body, No mandibular swelling; maxillary swelling; No pharynx swelling, No pharynx tenderness, No tongue swollen, No tonsillar exudate; other (Very trace facial sw elling on the right, no palpable abscess) Neck: non-tender, full range of motion, supple, normal inspection Cardiovascular: regular rate, rhythm, no edema, no murmur Respiratory: chest non-tender, lungs clear, normal breath sounds, no respiratory distress, no accessory muscle use Gastrointestinal: normal bowel sounds, non tender, soft; No distended, No guarding, No rebound Neurologic/Psychiatric: no motor/sensory deficits, alert, normal mood/affect Skin: normal color, warm/dry Progress/Results/Core Measures Results/Orders Vital Signs/I&O 07/02/22 20:35 Temp 36.5 Pulse 86 Resp 18 B/P (MAP) 188/107 (134) Pulse Ox 97 O2 Delivery Room Air Blood Pressure Mean: 134 Progress Progress Note : Progress Note 47-year-old female presenting for facial swelling and dental pain. ABCs were intact and vitals were stable on presentation. Physical exam with very minor swelling but no palpable abscess and obvious fractured tooth. She has known legitimate allergy to penicillin. We will place her on clindamycin since she h as tolerated it in the past. Departure Impression Primary Impression: Pain, dental Additional Impression: Fracture of tooth Qualified Codes: S02.5XXA - Fracture of tooth (traumatic), initial encounter for closed fracture Disposition: HOME, SELF-CARE Condition: Stable Departure-Patient Inst. Decision time for Depature: 20:53 Referrals: SELFSAHUN MD (PCP/Family) Primary Care Physician Patient Instructions: Dental Pain Add. Discharge Instructions: Please call [facility] on Tuesday to discuss that you need a tooth removed and ask if they can give a referral to the dentist. Until this tooth is removed, it is possible that this could happen again. Finish the antibiotic, take 600 mg of ibuprofen every 6 hours and 1000 mg of Tylenol every 6 hours as needed for pain. Scripts Clindamycin HCl (Clindamycin HCl) 300 Mg Capsule 300 MG PO QID for 7 Days, #28 CAP Prov: SIMRAN LAMB MD 07/02/22 Work/School Note: Work Release Form Date Seen in the Emergency Department: Jul 02, 2022 Return to Work: Jul 04, 2022 Restrictions: No Restrictions SIMRAN LAMB MD Jul 02, 2022 20:54
[2022-07-02 21:00] VITALS: BP 156/80
[2022-07-02] MEDS ORDERED: HYDROcodone/APAP 5 MG/325 MG (LORTAB) TAB PO ONE (21:00)
[2022-07-02] MEDS ORDERED: CLINDAMYCIN 150 MG (CLEOCIN) CAP PO ONE (21:00)
== END 2022-07-02 21:00 | disposition home or self-care (01) ==
LOC: EDUNIT# 20:32 → ER FS 20:33
DX: S02.5XXA Fracture of tooth (traumatic), initial encounter for closed fracture (principal); F17.210 Nicotine dependence, cigarettes, uncomplicated; Z88.1 Allergy status to other antibiotic agents; X58.XXXA Exposure to other specified factors, initial encounter
CPT/HCPCS: 99283

== ENCOUNTER 2022-10-27 17:18 | Emergency (ER) | payer BC ==
[~2022-10-27] VITALS: Ht 165 cm; Wt 126.0 kg
[2022-10-27] MEDS ORDERED: NS IV 1000 ML 1,000 ML IV STA (17:29)
[2022-10-27] MEDS ORDERED: fentaNYL INJ 100 MCG/2 ML AMP IVP STA ×2 (17:29→21:55)
[2022-10-27] MEDS ORDERED: ONDANSETRON 4 MG/2 ML (SDV) Z0FRAN IVP STA (17:29)
--- NOTE | 2022-10-27 17:37 | ED General ---
General Chief Complaint: General Problems/Pain Stated Complaint: HARD TIME BREATHING, CANT LAY DOWN, PAIN Source of Information: Patient History of Present Illness Date Seen by Provider: Oct 27, 2022 Time Seen by Provider: 17:21 Initial Comments 47-year-old female presenting with complaints of sharp chest pains in her chest and abdomen that started at 1 AM. She was concerned about blood clots because she cannot lie flat and it hurts to breathe. She had a cardiac ablation by Dr. Louie at [facility] on October 20, 2022 for refractory SVT. She had seen her primary care doctor, Dr. NAVA, this morning around 11 am in the clinic about her symptoms. He had arranged for ultrasound to look at her gallbladder and because she was still having pain she came to the Emergency department because she states she can not tolerate the pain any longer and she was very worried she had a blood clot. She has not taken anything for the pain throughout the day. She also feels like it hurts to take a deep breath. She denies any trauma or falls since having the ablation procedure done last Tuesday. She had tried to call Dr. Louie and states that they have not called her back from . She almost immediately after getting in the room stated that if she has anything where she needs to be admitted she demands to go to since she was seen there last week for the cardiac ablation. Timing/Duration: 12-24 Hours (since 1 am thir morning) Severity: Severe Modifying Factors: worse with Movement, worse with Other (laying back and deep breaths makes the pain worse) Associated Systoms: Chest Pain; No Cough, No Diaphoresis, No Fever/Chills, No Headaches, No Nausea/Vomiting, No Rash, No Seizure; Shortness of Air; No Syncope, No Weakness Allergies and Home Medications Allergies Coded Allergies: amoxicillin (Verified Allergy, Severe, HIVES, 09/29/12) cefdinir (Verified Allergy, Unknown, 08/07/21) Patient Home Medication List Home Medication List Reviewed: Yes Clindamycin HCl (Clindamycin HCl) 300 Mg Capsule, 300 MG PO QID Prescribed by: SIMRAN LAMB on 08/07/21 1351 Clindamycin HCl (Clindamycin HCl) 300 Mg Capsule, 300 MG PO QID Prescribed by: SIMRAN LAMB on 07/02/222053 Colchicine (Colchicine) 0.6 Mg Tablet, 0.6 MG PO BID Prescribed by: RANDELL PEREZ on 10/27/222156 Epinephrine (Epipen 2-Vladimir) 0.3 Mg/0.3 Ml Auto.injct, 0.3 MG IJ Q15M PRN for anaphylaxis Prescribed by: SIMRAN LAMB on 08/07/21 1351 Hydrocodone/Acetaminophen (Hydrocodone-Acetamin 5-325 mg) 5 Mg-325 Mg Tablet, 1 TAB PO Q6H PRN for PAIN SEVERE Prescribed by: RANDELL PEREZ on 10/27/222157 Metoprolol Tartrate (Metoprolol Tartrate) 25 Mg Tablet, 25 MG PO BID Prescribed by: SIMRAN LAMB on 04/22/22 0750 Nitrofurantoin/Nitrofuran Mac (Macrobid) 100 Mg Capsule, 1 EACH PO BID Prescribed by: LIDIA LEON on 09/29/12 191 Pantoprazole Sodium (Pantoprazole Sodium) 40 Mg Tablet.dr, 40 MG PO DAILY Prescribed by: RANDELL PEREZ on 10/11/19 0032 Review of Systems Review of Systems Constitutional: No chills, No fever EENTM: no symptoms reported Respiratory: see HPI Cardiovascular: see HPI Gastrointestinal: see HPI, abdominal pain (diffuse abdominal pain) Genitourinary: No dysuria Musculoskeletal: back pain (reports the chest and abdomen pain radiates to her back) Skin: No change in color, No rash Psychiatric/Neurological: Anxiety Hematologic/Lymphatic: Denies Blood Clots Past Brnbyvy-Pdmiae-Idtpnc Hx Immunizations Up To Date First/Initial COVID19 Vaccinat: Not currently vaccinated Second COVID19 Vaccination Kamar: Not currently vaccinated Third COVID19 Vaccination Date: Not currently vaccinated Past Medical History Surgery/Hospitalization HX: SVT, Cardiac ablation 10/20/2022 at [facility] with [address]. Javy Byrne Surgeries: Yes Cardiac (ablation for SVT 10/20/2022) Reproductive Disorders: No Sexually Transmitted Disease: No HIV/AIDS: No Adverse Reaction/Blood Tranf: No Physical Exam Vital Signs Vital Signs - First Documented 10/27/22 19:11 Pulse 100 Resp 20 B/P (MAP) 164/100 (121) Pulse Ox 98 O2 Delivery Room Air Capillary Refill : Height, Weight, BMI Height: '" Weight: lbs. oz. kg; 43.00 BMI Method:Stated General Appearance: Anxious, Obese Neck: Full Range of Motion, Normal Inspection, Non Tender, Supple Respiratory: No Chest Non Tender (tender to palpation anterior chest wall); Decreased Breath Sounds (poor inspiratory effort due to apin with deep breaths) Cardiovascular: Regular Rate, Rhythm, Normal Peripheral Pulses Gastrointestinal: Normal Bowel Sounds, No Pulsatile Mass, Soft; No Distended, No Guarding; Tenderness (diffuse tenderness to abdomen) Rectal: Deferred Extremity: Normal Capillary Refill, No Calf Tenderness, No Pedal Edema Neurologic/Psychiatric: Alert, Oriented x3, Other (anxious) Skin: Normal Color, Warm/Dry Progress/Results/Core Measures Suspected Sepsis SIRS Temperature: Pulse: Respiratory Rate: Laboratory Tests 10/27/22 18:30: White Blood Count 10.2 Blood Pressure / Mean: Laboratory Tests 10/27/22 18:30: Platelet Count 301 10/27/22 19:16: Creatinine 0.57L, INR Comment 0.9, Total Bilirubin 0.8 Results/Orders Lab Results Laboratory Tests Test 10/27/22 18:30 10/27/22 19:16 Range/Units White Blood Count 10.2 4.3-11.0 10^3/uL Red Blood Count 5.14 H 3.80-5.11 10^6/uL Hemoglobin 14.2 11.5-16.0 g/dL Hematocrit 44 35-52 % Mean Corpuscular Volume 86 80-99 fL Mean Corpuscular Hemoglobin 28 25-34 pg Mean Corpuscular Hemoglobin Concent 32 32-36 g/dL Red Cell Distribution Width 14.0 10.0-14.5 % Platelet Count 301 130-400 10^3/uL Mean Platelet Volume 9.5 9.0-12.2 fL Immature Granulocyte % (Auto) 0 % Neutrophils (%) (Auto) 70 42-75 % Lymphocytes (%) (Auto) 18 12-44 % Monocytes (%) (Auto) 10 0-12 % Eosinophils (%) (Auto) 1 0-10 % Basophils (%) (Auto) 1 0-10 % Neutrophils # (Auto) 7.2 1.8-7.8 10^3/uL Lymphocytes # (Auto) 1.9 1.0-4.0 10^3/uL Monocytes # (Auto) 1.0 0.0-1.0 10^3/uL Eosinophils # (Auto) 0.1 0.0-0.3 10^3/uL Basophils # (Auto) 0.1 0.0-0.1 10^3/uL Immature Granulocyte # (Auto) 0.0 0.0-0.1 10^3/uL Percent Immature Platelet Fraction 2.8 0.0-7.6 % Prothrombin Time 12.8 12.2-14.7 SEC INR Comment 0.9 0.8-1.4 Activated Partial Thromboplast Time 27 24-35 SEC Sodium Level 138 135-145 MMOL/L Potassium Level 4.2 3.6-5.0 MMOL/L Chloride Level 102 98-107 MMOL/L Carbon Dioxide Level 22 21-32 MMOL/L Anion Gap 14 5-14 MMOL/L Blood Urea Nitrogen 10 7-18 MG/DL Creatinine 0.57 L 0.60-1.30 MG/DL Estimat Glomerular Filtration Rate 111 BUN/Creatinine Ratio 18 Glucose Level 118 H 70-105 MG/DL Calcium Level 9.4 8.5-10.1 MG/DL Corrected Calcium 9.2 8.5-10.1 MG/DL Magnesium Level 2.1 1.6-2.4 MG/DL Total Bilirubin 0.8 0.1-1.0 MG/DL Aspartate Amino Transf (AST/SGOT) 14 5-34 U/L Alanine Aminotransferase (ALT/SGPT) 13 0-55 U/L Alkaline Phosphatase 83 40-136 U/L Troponin I < 0.30 <0.30 NG/ML Pro-B-Type Natriuretic Peptide < 36.0 <125.0 PG/ML Total Protein 7.8 6.4-8.2 GM/DL Albumin 4.2 3.2-4.5 GM/DL Lipase 14 8-78 U/L My Orders Orders - RANDELL PEREZ MD Cbc With Automated Diff (10/27/22 17:29) Magnesium (10/27/22 17:29) Chest 1 View Ap/Pa Only (10/27/22 17:29) Ekg Tracing (10/27/22 17:29) Comprehensive Metabolic Panel (10/27/22 17:29) Protime With Inr (10/27/22 17:29) Partial Thromboplastin Time (10/27/22 17:29) O2 (10/27/22 17:29) Monitor-Rhythm Ecg Trace Only (10/27/22 17:29) Ed Iv/Invasive Line Start (10/27/22 17:29) Lipase (10/27/22 17:29) Troponin I Fs (10/27/22 17:29) Probnp Fs (10/27/22 17:29) Ct Angio Chest/Abd/Pelv W (10/27/22 17:29) Ondansetron Injection (Zofran Injectio (10/27/22 17:29) Fentanyl Inj (Sublimaze Injection) (10/27/22 17:29) Ns Iv 1000 Ml (Sodium Chloride 0.9%) (10/27/22 17:29) Iohexol Injection (Omnipaque 350 Mg/Ml 1 (10/27/22 19:15) Received Contrast (Hold Metformin- Contr (10/27/22 19:15) Ns (Ivpb) (Sodium Chloride 0.9% Ivpb Bag (10/27/22 19:15) Ketorolac Injection (Toradol Injection) (10/27/22 20:40) Incentive Spirometry (Nursing) Q2H (10/27/22 20:40) Colchicine Tablet (Colcrys Tablet) (10/27/22 21:40) Rx-Hydrocodone/Apap 5-325 Mg (Rx-Vicodin (10/27/22 21:45) Fentanyl Inj (Sublimaze Injection) (10/27/22 21:55) Medications Given in ED Current Medications Medications Dose Ordered Sig/Asuncion Route Start Time Stop Time Status Last Admin Dose Admin Acetaminophen/ Hydrocodone Bitart 1 ea Q6H PRN PO 10/27/22 21:45 10/27/22 22:18 DC 10/27/22 21:50 1 EA Iohexol 100 ml ONCE ONCE IV 10/27/22 19:15 10/27/22 19:16 DC 10/27/22 20:21 100 ML Sodium Chloride 100 ml ONCE ONCE IV 10/27/22 19:15 10/27/22 19:16 DC 10/27/22 20:22 80 ML Vital Signs/I&O 10/27/22 19:11 Pulse 100 Resp 20 B/P (MAP) 164/100 (121) Pulse Ox 98 O2 Delivery Room Air Capillary Refill : Progress Note #1: Progress Note Potential life-threatening diagnosis of pulmonary embolism, myocardial infarction, aortic dissection, aortic aneurysm, acute heart failure, acute coronary syndrome. Obtain peripheral IV access and obtain blood for complete blood count, comprehensive metabolic profile, coagulation factors, cardiac enzymes of troponin and proBNP, lipase. Ordered 1 view chest x-ray to evaluate for acute abnormalities in her lungs and heart. CT angiogram of the chest abdomen and pelvis to look for possible pulmonary embolism and/or aortic dissection or aneurysm. Placed on cardiac electric screw driver operator and initially her cardiac rhythm was sinus with a heart rate in the 90s. Her initial blood pressure was elevated at 182/102 but she was also moving and complaining she could not lay back. Her oxygen saturation was 98% on room air. Will administer normal saline 1 L IV fluid bolus for hydration, fentanyl 50 mcg IV for pain, Zofran 4 mg IV to help prevent nausea and vomiting from the narcotic and from her pain. Advised that if we can get IV access we would like to perform a CT scan with IV contrast and she would have to lay flat to do the test. Progress Note #2: Time: 18:45 Progress Note Both nurses and tried at least twice to obtain IV access and were unsuccessful. Patient reports that they always have to get IV therapy and ultrasound to find a vein for her. She refused to let them look in her wrist or hands. One of the nurses was able to finally obtain 20-gauge IV in the left forearm that flushed well. Labs had to be drawn by butterfly needle. We will proceed with the fentanyl 50 mcg IV for pain and IV fluids for hydration. Perform CT scan angiography to look at lungs and aorta. I did advise the avionic technician that we could do the scan without waiting for the creatinine to come back because I would need to do the test regardless of her kidney function to know if she had a blood clot or an aortic dissection. Progress Note #3: Time: 19:38 Progress Note On my review and personal Interpretation of the 1 view chest x-ray she has no acute infiltrate but has a large body habitus and poor respiratory effort. Her complete blood count showed a normal white blood cell count of 10.2 with hemoglo bin that was not showing anemia at 14.2. Normal platelets at 301. Her comprehensive metabolic profile did not show any acute electrolyte abnormality. The BUN was 10 with a creatinine of 0.57. Her total bilirubin was 0.8 so it was not elevated or indicating inflammation of the liver or gallbladder. Similarly the AST was normal at 14 ALT 13 alkaline phosphatase 83. Lipase was normal at 14 and not elevated to indicate pancreatitis. Troponin I was less than 0.3 which should be 0 or negative considering she has had pain since 1 AM. Her proBNP was less than 36 so was not elevated to indicate any CHF findings. Her electrocardiogram showed normal sinus rhythm without ST elevation. Her cardiac telemetry was also showing normal sinus rhythm with heart rate in the 80s. She does report that her pain improved to 4 or 5 out of 10 after the fentanyl shot. Progress Note #4: Time: 20:33 Progress Note I have reviewed with the patient the labs and tests so far have all looked okay. in my opinion the CT chest abdomen pelvis with IV contrast for angiography did not demonstrate acute blood clot, mass, cholecystitis, aortic dissection or aneurysm. She was concerned about possible kidney stones but I did not appreciate any kidney stones either. Try to reassure patient that all the blood work and testing are look good. That does not completely rule out an issue with the gallbladder and the ultrasound could still be helpful. However tonight all of her blood work had looked good and did not indicate any inflammation in or obstruction of the gallbladder or liver. Since she was having more pleuritic type chest pain will administer Toradol as a single IV dose of 30 mg. Awaiting radiology reading on the CT angiography of the chest abdomen and pelvis. Since her plain 1 view film of the chest x-ray had shown some atelectasis and poor respiratory effort will discharge on a incentive spirometer and have her try to take deeper breaths to help expand her lungs better. Progress Note #5: Time: 21:10 Progress Note I reviewed the radiologist report on the CT scan of the chest abdomen pelvis. This did not demonstrate any aortic dissection or aneurysm and they did not see any pulmonary embolism. Her abdomen had not shown kidney stones, cholecystitis, gallbladder distention, hepatic obstruction or dilatation of duct work. She did have bilateral lower lobe atelectasis without consolidation for infection. Advised that she may still want to get the ultrasound done tomorrow as scheduled. This would help with better at the gallbladder. For tonight we will send her with a few pain pills in case her pain was getting worse and have her check back with cardiology at tomorrow. She had already left a message with them today but did not hear back from Dr. Louie or his nurse. 2124 I called to [facility] Transfer line and spoke with ROSA MARIA Geller. She took basic information about the patient and why I was calling and then paged Dr. Bill, ping pong table assembler motor rebuilder for cardiology. He quickly called back and I was conferenced in with him. I summarized patient presentation and findings as well as normal labs, negative cardiac enzymes, CT scan of chest/abdomen/pelvis with negative PE or aorta concerns. She had bibasilar atelectasis without consolidation. They reported that her pain was better with the fentanyl but not resolved so his dose of Toradol was given x1. She did not have any evidence of pericardial effusion nor perforation on the CT scan. Dr. Bill advised to have pt take Colchicine 0.6 mg po bid x 2 weeks to help treat for pericarditis. Decrease the dose to once a day if she is having too much diarrhea as a side effect. Follow-up with Dr. Byrne with cardiology for continued concerns. She could still have the ultrasound tomorrow to look at her gallbladder in more detail but it was reassuring that her tests had all looked okay tonight. I reviewed the recommendations from Dr. Mayo and updated the patient that her CT scanning was not showing blood clots or pneumonia or signs of aortic dissection or aneurysm. Discussed possible pericarditis and treatment options. Will send with 4 pack of hydrocodone 5/325 mg pills so she had something to help with pain overnight. She states that the Toradol is not really helped with her pain and certainly not as well as the fentanyl and initially did. We will repeat a dose of fentanyl and have her use the hydrocodone as needed severe pain. Given another 50 mcg IV fentanyl for her chest and abdomen pain. Prescription sent to the pharmacy for the colchicine 0.6 mg twice daily x2 weeks as well as hydrocodone 5/325 mg 1 p.o. every 6 hours as needed severe pain #12 for 3-day course. Advised to try sleeping in recliner or little more upright since she was still having pain but trying to lay down flat. ECG Initial ECG Impression Date: Oct 27, 2022 Initial ECG Impression Time: 18:14 Initial ECG Rate: 87 Initial ECG Rhythm: Normal Sinus Initial ECG Comparisson: Unchanged (04/22/2022) Comment On my personal interpretation and review of the electrocardiogram she has a normal sinus rhythm with a heart rate of 87 bpm. VT interval [address] elevation. QT interval 358 ms with a QTc interval 403 ms. Overall appears similar to tracing from April 22, 2022. Diagnostic Imaging Diagonstic Imaging: Xray Plain Films/CT/US/NM/MRI: chest Comments [facility]. [place], [place] NAME: ADRIAN VINSON [facility] REC#: [id number] PT STATUS: REG ER : 1975 PHYSICIAN: RANDELL PEREZ MD ADMIT DATE: 10/27/22/ER FS Signed Date of Exam:10/27/22 CHEST 1 VIEW AP/PA ONLY INDICATION: 47-year-old female with chest pain, abdominal pain and shortness of breath. COMPARISONS: 10/10/2019. FINDINGS: Single view chest shows the cardiac contour to be upper limits of normal. There is moderate central venous congestion. There is a slightly elevated right hemidiaphragm. Some basilar atelectatic infiltrates seen but no confluent consolidations. The film is slightly underpenetrated. Soft tissues and bony thorax are unremarkable. IMPRESSION: Mild central venous congestion with a few scattered atelectatic type infiltrates but no confluent consolidation. There is slightly elevated right hemidiaphragm. Dictated by: Dictated on workstation # [id number] Dict: 10/27/221949 Trans: 10/27/222014 [facility] [id number] Interpreted by: FARRUKH FIELDS MD Electronically signed by: FARRUKH FIELDS MD 10/27/222014 Reviewed: Reviewed by Me Diagonstic Imaging: CT Plain Films/CT/US/NM/MRI: chest, abdomen, pelvis Comments NAME: ADRIAN VINSON [facility] REC#: [id number] PT STATUS: REG ER : 1975 PHYSICIAN: RANDELL PEREZ MD ADMIT DATE: 10/27/22/ER FS Signed Date of Exam:10/27/22 CT ANGIO CHEST/ABD/PELV W PROCEDURE: CT angiography of the chest with contrast and CT abdomen and pelvis with contrast. TECHNIQUE: Multiple contiguous axial images were obtained through the chest, abdomen and pelvis after administration of intravenous contrast. 3D MIP reconstructed CT angiography acquisitions of the aorta were then performed. Auto Exposure Controls were utilized during the CT exam to meet ALARA standards for radiation dose reduction. INDICATION: 47-year-old female presents with chest and abdominal pain, shortness of breath. Patient had a cardiac ablation on October 20. FINDINGS: There is no axillary adenopathy. There is also no mediastinal or hilar adenopathy. Cardiac contour is normal. Thoracic aortic contour is also normal. There is normal arch origin of the great vessels. Pulmonary outflow tract as well as right and left pulmonary arteries and their segmental branches are patent. There is some atelectatic infiltrates with some discoid changes in the lower lobes of both lungs, right greater than left. No large confluent consolidations are seen. There is no effusion or pneumothorax. Liver shows uniform attenuation. Gallbladder is nondistended. Spleen and GE junction are normal. Stomach and duodenal sweep are unremarkable. Pancreas shows sharp margins. Adrenals are normal. Kidneys appear normal in size, position and contour with symmetrical perfusion of contrast. There is no hydronephrosis or hydroureter. Both ureters are seen intermittently through their course and appear unremarkable. Partially filled bladder is unremarkable. Uterus and adnexa are normal. Nonopacified loops of small bowel are grossly normal. Large bowel contains fecal material and gas. The appendix contains a few granular-type calcifications, otherwise, no evidence of inflammation. There is normal caliber of the abdominal aorta, iliac and femoral arteries with normal origin of the visceral arteries. Bone windows show no overall gross abnormality. There is normal alignment of the axial skeleton. IMPRESSION: 1. Bilateral lower lobe alveolar infiltrates but no confluent consolidations. 2. No evidence of aortic aneurysm, dissection or pulmonary embolism. 3. No evidence of cholecystitis, appendicitis or obstructive uropathy. No area of peritoneal inflammation seen. Additional nonemergent findings as described above. Dictated by: Dictated on workstation # [id number] Dict: 10/27/222028 Trans: 10/27/222106 [facility] [id number] Interpreted by: FARRUKH FIELDS MD Electronically signed by: FARRUKH FIELDS MD 10/27/222106 Reviewed: Reviewed by Me (I reviewed the radiologist report at 2109) Critical Care Note Critical Care Total Time (minutes) At least 45 minutes of critical care time spent with the patient. Progress I spent at least 45 minutes of critical care time with the patient. This time excludes separately billable procedures. Time was spent obtaining history and information from the patient and family, reviewing the electronic medical record, ordering tests and reviewing results, ordering interventions and reviewing response, discussion with consultants, discussion with patient and family, documentation in the chart. Patient was potentially at risk for aortic dissection nor pulmonary embolism that could cause acute cardiovascular compromise and cardiac arrest. She required my immediate direct monitoring and intervention to help keep the patient stable and evaluate for life-threatening conditions. Departure Impression Primary Impression: Pleuritic chest pain Additional Impressions: Diffuse abdominal pain Pericarditis Qualified Codes: I30.0 - Acute nonspecific idiopathic pericarditis Disposition: HOME, SELF-CARE Condition: Improved Departure-Patient Inst. Decision time for Depature: 21:37 Referrals: SHAUN NAVA MD (PCP/Family) Primary Care Physician Patient Instructions: Abdominal Pain, Adult ED, How to Use an Incentive Spirometer, Pericarditis, Adult (DC), Pleuritic Chest Pain ED Add. Discharge Instructions: Use the incentive spirometer to help with expanding your lungs and taking deep breaths. You should try to do this at least 10 times an hour while you are awake. You could try taking the narcotic pain medicine to help you rest. Follow-up with the ultrasound as scheduled tomorrow to look at the gallbladder in more detail. Check back with Dr. Byrne's office again to see if he wants you to do anything differently. Dr. Bill the ping pong table assembler Straw Hat Presser covering for Dr. Caty cooley recommended you take Colchicine 0.6 mg twice a day for two weeks in case there is some inflammation around the heart from your recent procedure. If you are having diarrhea from the medicine you could decrease it to once a day instead of twice a day. All discharge instructions reviewed with patient and/or family. Voiced understanding. Scripts Hydrocodone/Acetaminophen (Hydrocodone-Acetamin 5-325 mg) 5 Mg-325 Mg Tablet 1 TAB PO Q6H PRN for PAIN SEVERE for 3 Days, #12 TAB 0 Refills Prov: RANDELL PEREZ MD 10/27/22 Colchicine (Colchicine) 0.6 Mg Tablet 0.6 MG PO BID for Pericarditis for 14 Days, #28 TAB 0 Refills Prov: RANDELL PEREZ MD 10/27/22 RANDELL PEREZ MD Oct 27, 2022 17:37
[2022-10-27 18:39] LABS: BASOPHILS # (AUTO) 0.1 10^3/uL (0.0-0.1); BASOPHILS % (AUTO) 1 % (0-10); EOSINOPHILS # (AUTO) 0.1 10^3/uL (0.0-0.3); EOSINOPHILS % (AUTO) 1 % (0-10); HEMATOCRIT 44 % (35-52); HEMOGLOBIN 14.2 g/dL (11.5-16.0); LYMPHOCYTES # (AUTO) 1.9 10^3/uL (1.0-4.0); LYMPHOCYTES % (AUTO) 18 % (12-44); MEAN CORPUSCULAR HEMOGLOBIN 28 pg (25-34); MEAN CORPUSCULAR HGB CONC 32 g/dL (32-36); MEAN CORPUSCULAR VOLUME 86 fL (80-99); MEAN PLATELET VOLUME 9.5 fL (9.0-12.2); MONOCYTES % (AUTO) 10 % (0-12); NEUTROPHILS # (AUTO) 7.2 10^3/uL (1.8-7.8); NEUTROPHILS % (AUTO) 70 % (42-75); PLATELET COUNT 301 10^3/uL (130-400); WHITE BLOOD COUNT 10.2 10^3/uL (4.3-11.0)
[2022-10-27] MEDS ORDERED: NS 100 ML (IVPB) BAG IV ONE (19:15)
[2022-10-27] MEDS ORDERED: IOHEXOL 350 MG/ML 100 ML (OMNIPAQUE 350) VIAL IV ONE (19:15)
[2022-10-27] MEDS ORDERED: HOLD METFORMIN - RECEIVED CONTRAST 20 ML VIAL IV SCH (19:15)
[2022-10-27 19:42] LABS: INR 0.9 (0.8-1.4); PROTHROMBIN TIME PATIENT 12.8 SEC (12.2-14.7)
[2022-10-27 19:48] LABS: ALBUMIN 4.2 GM/DL (3.2-4.5); BILIRUBIN,TOTAL 0.8 MG/DL (0.1-1.0); CALCIUM 9.4 MG/DL (8.5-10.1); CREATININE SERUM 0.57 MG/DL (0.60-1.30); MAGNESIUM 2.1 MG/DL (1.6-2.4); POTASSIUM 4.2 MMOL/L (3.6-5.0); TOTAL PROTEIN 7.8 GM/DL (6.4-8.2)
--- NOTE | 2022-10-27 20:15 | Diagnostic Imaging Report ---
INDICATION: 47-year-old female with chest pain, abdominal pain and shortness of breath. COMPARISONS: 10/10/2019. FINDINGS: Single view chest shows the cardiac contour to be upper limits of normal. There is moderate central venous congestion. There is a slightly elevated right hemidiaphragm. Some basilar atelectatic infiltrates seen but no confluent consolidations. The film is slightly underpenetrated. Soft tissues and bony thorax are unremarkable. IMPRESSION: Mild central venous congestion with a few scattered atelectatic type infiltrates but no confluent consolidation. There is slightly elevated right hemidiaphragm. Dictated by: Dictated on workstation # [id number]
[2022-10-27] MEDS ORDERED: KETOROLAC 30 MG/ML VIAL IVP STA (20:40)
--- NOTE | 2022-10-27 20:50 | Diagnostic Imaging Report ---
PROCEDURE: CT angiography of the chest with contrast and CT abdomen and pelvis with contrast. TECHNIQUE: Multiple contiguous axial images were obtained through the chest, abdomen and pelvis after administration of intravenous contrast. 3D MIP reconstructed CT angiography acquisitions of the aorta were then performed. Auto Exposure Controls were utilized during the CT exam to meet ALARA standards for radiation dose reduction. INDICATION: 47-year-old female presents with chest and abdominal pain, shortness of breath. Patient had a cardiac ablation on October 20. FINDINGS: There is no axillary adenopathy. There is also no mediastinal or hilar adenopathy. Cardiac contour is normal. Thoracic aortic contour is also normal. There is normal arch origin of the great vessels. Pulmonary outflow tract as well as right and left pulmonary arteries and their segmental branches are patent. There is some atelectatic infiltrates with some discoid changes in the lower lobes of both lungs, right greater than left. No large confluent consolidations are seen. There is no effusion or pneumothorax. Liver shows uniform attenuation. Gallbladder is nondistended. Spleen and GE junction are normal. Stomach and duodenal sweep are unremarkable. Pancreas shows sharp margins. Adrenals are normal. Kidneys appear normal in size, position and contour with symmetrical perfusion of contrast. There is no hydronephrosis or hydroureter. Both ureters are seen intermittently through their course and appear unremarkable. Partially filled bladder is unremarkable. Uterus and adnexa are normal. Nonopacified loops of small bowel are grossly normal. Large bowel contains fecal material and gas. The appendix contains a few granular-type calcifications, otherwise, no evidence of inflammation. There is normal caliber of the abdominal aorta, iliac and femoral arteries with normal origin of the visceral arteries. Bone windows show no overall gross abnormality. There is normal alignment of the axial skeleton. IMPRESSION: 1. Bilateral lower lobe alveolar infiltrates but no confluent consolidations. 2. No evidence of aortic aneurysm, dissection or pulmonary embolism. 3. No evidence of cholecystitis, appendicitis or obstructive uropathy. No area of peritoneal inflammation seen. Additional nonemergent findings as described above. Dictated by: Dictated on workstation # [id number]
[2022-10-27] MEDS ORDERED: COLC0.6T59 PO ×2 (21:38→21:57)
[2022-10-27] MEDS ORDERED: COLCHICINE 0.6 MG (COLCRYS) TABLET PO STA (21:40)
[2022-10-27] MEDS ORDERED: ACHD5005 PO (21:57)
[2022-10-27 22:18] VITALS: BP 155/80
== END 2022-10-27 22:18 | disposition home or self-care (01) ==
LOC: EDUNIT# 17:18 → ER FS 17:21
DX: I31.9 Disease of pericardium, unspecified (principal); R10.84 Generalized abdominal pain; R11.2 Nausea with vomiting, unspecified; E66.9 Obesity, unspecified; Z68.41 Body mass index [BMI] 40.0-44.9, adult; Z28.310 Unvaccinated for COVID-19
CPT/HCPCS: 36415; 71045; 71275; 74174; 80053; 83690; 83735; 83880; 84484; 85025; 85610; 85730; 93005; 93041; Q9967

== ENCOUNTER 2022-10-28 09:08 | Emergency (ER) | payer BC ==
[~2022-10-28] VITALS: Ht 165 cm; Wt 126.0 kg
[~2022-10-28 09:08] MED LIST changes: +ACHD5005 PO; +COLC0.6T59 PO
--- NOTE | 2022-10-28 09:24 | ED Abdominal Pain ---
General Stated Complaint: EPIGASTRIC PAIN History of Present Illness Date Seen by Provider: Oct 28, 2022 Time Seen by Provider: 09:18 Initial Comments 47-year-old female presents with epigastric and right flank pain. Patient was seen in the ER yesterday and had a negative CTA chest and negative abdominal CT for any acute emergent findings. Patient had an ultrasound this morning that was found to have a stone stuck in the bend of her bile duct. Patient presents in the ER because she is having a lot of pain. No nausea or vomiting. Patient took a hydrocodone for pain just prior to arrival. Allergies and Home Medications Allergies Coded Allergies: amoxicillin (Verified Allergy, Severe, HIVES, 09/29/12) cefdinir (Verified Allergy, Unknown, 08/07/21) Patient Home Medication List Home Medication List Reviewed: Yes Clindamycin HCl (Clindamycin HCl) 300 Mg Capsule, 300 MG PO QID Prescribed by: SIMRAN LAMB on 08/07/21 135 Clindamycin HCl (Clindamycin HCl) 300 Mg Capsule, 300 MG PO QID Prescribed by: SIMRAN LAMB on 07/02/22 205 Colchicine (Colchicine) 0.6 Mg Tablet, 0.6 MG PO BID Prescribed by: RANDELL PEREZ on 10/27/222156 Epinephrine (Epipen 2-Vladimir) 0.3 Mg/0.3 Ml Auto.injct, 0.3 MG IJ Q15M PRN for anaphylaxis Prescribed by: SIMRAN LAMB on 08/07/21 135 Hydrocodone/Acetaminophen (Hydrocodone-Acetamin 5-325 mg) 5 Mg-325 Mg Tablet, 1 TAB PO Q6H PRN for PAIN SEVERE Prescribed by: RANDELL PEREZ on 10/27/22 215 Metoprolol Tartrate (Metoprolol Tartrate) 25 Mg Tablet, 25 MG PO BID Prescribed by: SIRMAN LAMB on 04/22/22 075 Nitrofurantoin/Nitrofuran Mac (Macrobid) 100 Mg Capsule, 1 EACH PO BID Prescribed by: LIDIA LEON on 09/29/121912 Pantoprazole Sodium (Pantoprazole Sodium) 40 Mg Tablet.dr, 40 MG PO DAILY Prescribed by: RANDELL PEREZ on 10/11/19 0032 Review of Systems Review of Systems Constitutional: No chills, No fever EENTM: No Symptoms Reported Respiratory: No Symptoms Reported Cardiovascular: No Symptoms Reported Gastrointestinal: See HPI Musculoskeletal: back pain Skin: no symptoms reported Psychiatric/Neurological: No Symptoms Reported Endocrine: No Symptoms Reported Past [id number] Hx Immunizations Up To Date First/Initial COVID19 Vaccinat: Not currently vaccinated Second COVID19 Vaccination Kamar: Not currently vaccinated Third COVID19 Vaccination Date: Not currently vaccinated Past Medical History Surgery/Hospitalization HX: SVT, Cardiac ablation 10/20/2022 at [facility] with Dr. Javy Byrne Surgeries: Yes Cardiac Reproductive Disorders: No Sexually Transmitted Disease: No HIV/AIDS: No Adverse Reaction/Blood Tranf: No Physical Exam Vital Signs Vital Signs - First Documented 10/28/22 09:12 Temp 36.0 Pulse 97 Resp 22 B/P (MAP) 194/120 (144) Pulse Ox 97 O2 Delivery Room Air Capillary Refill : Height/Weight/BMI Height: '" Weight: lbs. oz. kg; 46.00 BMI Method:Stated General Appearance: mild distress Neck: non-tender, full range of motion Respiratory: lungs clear, normal breath sounds Cardiovascular: normal peripheral pulses, regular rate, rhythm Gastrointestinal: soft, tenderness Extremities: non-tender, normal inspection Back: CVA tenderness (R) Neurologic/Psychiatric: alert, normal mood/affect, oriented x 3 Skin: normal color, warm/dry Progress/Results/Core Measures Results/Orders My Orders Orders - LENOARDO RUEDA DO Hyoscyamine Sl Tablet (Levsin Sl Tablet) (10/28/22 09:30) Ketorolac Injection (Toradol Injection) (10/28/22 09:30) Medications Given in ED Current Medications Medications Dose Ordered Sig/Asuncion Route Start Time Stop Time Status Last Admin Dose Admin Hyoscyamine Sulfate 0.125 mg ONCE ONCE PO 10/28/22 09:30 10/28/22 09:31 DC 10/28/22 09:22 0.125 MG Ketorolac Tromethamine 15 mg ONCE ONCE IM 10/28/22 09:30 10/28/22 09:31 DC 10/28/22 09:21 15 MG Vital Signs/I&O 10/28/22 09:12 Temp 36.0 Pulse 97 Resp 22 B/P (MAP) 194/120 (144) Pulse Ox 97 O2 Delivery Room Air Progress Progress Note : Progress Note Patient presented from her primary care provider office. I reviewed her ultrasound results from [facility]. There was concerns for early acute cholecystitis with a gallstone in the neck. I also reviewed patient's labs and notes from yesterday ER visit with Dr. Perez. Patient had a recent ablation at [facility]. Patient was requesting that she be referred to [facility] since that is where they just did her ablation in her cardiology team was there to clear her for surgery. Patient declined IV at this time since she reports that usually need to use ultrasound in which she would prefer to wait till she gets to . Patient results were discussed with Dr. Avina, general surgery at who accepted patient for transfer. Patient to remain n.p.o. until she arrives at . Patient will transfer to via private vehicle. She is stable upon transfer. Departure Impression Primary Impression: Acute cholecystitis due to biliary calculus Disposition: HOME, SELF-CARE Condition: Stable Transfer Transfer Reason: Patient preference Time Spoke to Accepting Phy: 10:35 Transfer Progress Notes Patient accepted by Dr. Avina Transfer Facility: [facility] Method of Transfer: Private Vehicle Departure-Patient Inst. Referrals: SELF,SHAUN MAGALLON (PCP/Family) Primary Care Physician LEONARDO RUEDA DO Oct 28, 2022 09:24
[2022-10-28] MEDS ORDERED: HYOSCYAMINE 0.125 MG (LEVSIN) TAB PO ONE (09:30)
[2022-10-28] MEDS ORDERED: KETOROLAC 15 MG/ML VIAL IM ONE (09:30)
[2022-10-28 10:49] VITALS: BP 185/91
== END 2022-10-28 11:15 | disposition home or self-care (01) ==
LOC: EDUNIT# 09:08 → ER FS 09:09
DX: K80.00 Calculus of gallbladder with acute cholecystitis without obstruction (principal); Z28.310 Unvaccinated for COVID-19